=== PATIENT | male | born 1980 | race Caucasian/White ===

== ENCOUNTER → 2023-08-28 | Outpatient (CLI) | payer OTHER ==
[~2023-08-28] MED LIST: GADOTERATE MEGLUMINE 10 MMOL/20 ML VIAL IV ONE
== END | disposition home or self-care (01) ==
LOC: RAH 14:21
PROVIDERS: ATTEND Family Medicine
DX: M47.22 Other spondylosis with radiculopathy, cervical region (principal); M48.02 Spinal stenosis, cervical region; M50.11 Cervical disc disorder with radiculopathy, high cervical region; G89.29 Other chronic pain; M54.50 Low back pain, unspecified; M54.30 Sciatica, unspecified side
CPT/HCPCS: 72141; 72158; A9575

== ENCOUNTER 2023-09-14 08:37 | Day surgery (SDC) | payer OTHER ==
[2023-09-12 11:35] VITALS: BP 140/92; PULSE 65; RESP 17
[~2023-09-14] VITALS: Ht 175.3 cm; Wt 92.2 kg
[2023-09-14] VITALS (11 sets, daily range): BP systolic 93–142; BP diastolic 51–85; PULSE 78–89; RESP 12–15
[~2023-09-14 08:37] MED LIST changes: +ACYC-138 PO; -GADOTERATE MEGLUMINE 10 MMOL/20 ML VIAL IV ONE
[2023-09-14] MEDS ORDERED: PROPOFOL 10 MG/ML 20ML VIAL IV ONE ×2 (11:34)
[2023-09-14] MEDS ORDERED: LIDOCAINE HCL 1% 20 ML VIAL ONE (11:36)
== END 2023-09-14 13:10 | disposition home or self-care (01) ==
LOC: DAH 08:37 → ENDO 08:37
PROVIDERS: ATTEND Internal Medicine Gastroenterology
DX: R19.7 Diarrhea, unspecified (principal); K21.9 Gastro-esophageal reflux disease without esophagitis; K92.1 Melena; K64.0 First degree hemorrhoids; K31.89 Other diseases of stomach and duodenum; K29.50 Unspecified chronic gastritis without bleeding; F32.A Depression, unspecified; F17.200 Nicotine dependence, unspecified, uncomplicated; Z79.01 Long term (current) use of anticoagulants; Z79.899 Other long term (current) drug therapy; Z80.0 Family history of malignant neoplasm of digestive organs; Z72.89 Other problems related to lifestyle
CPT/HCPCS: 43239; 45380; J2704 ×2; A4620; A4215 ×2; A4223; A7002; A4222; A4221; A4663; A4216; J7030; A4606; J3490